=== PATIENT | female | born 1970 | race African-American/Black ===

== ENCOUNTER 2018-05-04 03:28 | Emergency (ER) | payer BC ==
[~2018-05-04] VITALS: Ht 162.6 cm; Wt 68.9 kg
[2018-05-04] MEDS ORDERED: CIPRO500 MG PO (09:14)
[2018-05-04] MEDS ORDERED: DICLOFENAC SODI50 MG PO (09:14)
== END 2018-05-04 10:49 | disposition home or self-care (01) ==
LOC: ER 03:28
DX: R10.31 Right lower quadrant pain (principal); N39.0 Urinary tract infection, site not specified; R82.79 Other abnormal findings on microbiological examination of urine